=== PATIENT | female | born 1950 | race Caucasian/White ===

== ENCOUNTER → 2018-09-29 | Day surgery (SDC) | payer MEDICARE ==
[~2018-09-29] MED LIST: AMBIEN10 MG PO; CYMBALTA30 MG PO; FENTANYL CITRATE/PF 100MCG/2 ML INJ ONE; GABAPENTIN100 MG PO; GABAPENTIN300 MG PO; MIDAZOLAM HCL 2 MG/2 ML VIAL ONE; NAPROXEN250 MG PO; OR PHACO EYE KIT ONE; PREOP PHACO EYE KIT ONE; PRILOSEC OTC20 MG PO; SYNTHROID125 MCG PO; TIZANIDINE HCL4 MG PO; TRAZODONE HCL50 MG PO; ULTRAM50 MG PO
--- OUTSIDE RECORDS SUMMARY | 2018-09-29 12:20 | XMS REPORT | Continuity of Care Document ---
Author Author [facility] Organization [facility] Address Unknown Phone Unavailable Care Team Providers Care Editor Name Role Phone MD Taye, Bret KEITH Unavailable Insurance Providers Payer name Policy type / Coverage type Policy ID Covered alliance party ID Policy Cross [facility] - MEDICARE SOLUTIONS - MEDICARE C [facility] - MEDICARE SOLUTIONS - MEDICARE C Encounters Encounter Performer Location Date Lab Report Bret Kothari MD [facility] [place] Jul 08, 2014 Allergies, Adverse Reactions, Alerts Type Substance Reaction Status Drug allergy PCN itching Inactive Drug allergy STEROIDS flushing, tongue gets trush Inactive Problems Problem Effective Dates Problem Status FIBROMYALGIA Active HYPOTHYROIDISM Active INSOMNIA Active DEPRESSION Jun 10, 2013 Active ROTATOR CUFF SYNDROME, RIGHT Jun 10, 2013 Active CHEST PAIN, ATYPICAL Oct 04, 2013 Active BODY MASS INDEX 27.0-27.9, ADULT Jul 08, 2014 Active OVERWEIGHT Jul 08, 2014 Active HYPERCHOLESTEROLEMIA, PURE Jul 08, 2014 Active Procedures Date Description Comments Jul 02, 2003 colonoscopy Done Sep 19, 2008 bone density Done Sep 19, 2008 mammogram Done Jun 10, 2013 smoking status current every day smoker Jun 10, 2013 smoking/tobacco cessation, patient education and counseling yes Jul 19, 2013 mammogram Completed Aug 08, 2013 mammogram Completed Jul 08, 2014 smoking status Current every day smoker Jul 08, 2014 smoking/tobacco cessation, patient education and counseling yes Medications Medication Instructions Start Date Status PROMETHAZINE HCL 25 MG TABS Take 1 q 4-6 hrs prn Mar 25, 2013 Active PREDNISONE 20 MG TABS 3tabs po for 2d,then 2 po for 2 d then 1 po for 4 d Jun 10, 2013 Inactive CYMBALTA 60 MG CPEP 1 PO bid Jun 10, 2013 Active LEVOTHYROXINE SODIUM 100 MCG TABS 1 PO Daily Jun 11, 2013 Active OMEPRAZOLE 40 MG CPDR 1 po q d Jun 10, 2013 Inactive TRAZODONE HCL 50 MG TABS 1 po qhs Nov 24, 2013 Active OMEPRAZOLE 40 MG CPDR Take 1 po daily December 28, 2013 Active AMBIEN 10 MG TABS Take one tablet by mouth at bedtime as needed for insomnia Jun 29, 2013 Active SIMVASTATIN 10 MG TABS Take one tablet by mouth once daily Jul 08, 2014 Active NORCO 5-325 MG TABS 1 po qid prn pain Sep 29, 2013 Inactive TRAMADOL HCL 50 MG TABS 1 tablet 4 times a day as needed for pain Jul 08, 2014 Active Immunizations Vaccine Date Status influenza immunization (Flu Vax) has been administered Jul 08, 2014 completed Vital Signs Date Description Test Result Jun 10, 2013 height E&M - 8302-2 HEIGHT 65 in Jun 10, 2013 weight E&M - 3141-9 WEIGHT 150 lb Jun 10, 2013 temperature E&M TEMPERATURE 97.7 deg f Jun 10, 2013 blood pressure, systolic - 8480-6 BP SYSTOLIC 97 mm Hg Jun 10, 2013 blood pressure, diastolic - 8462-4 BP DIASTOLIC 59 mm Hg Jun 10, 2013 pulse rate E&M - 8867-4 PULSE RATE 87 /min Jun 29, 2013 weight E&M - 3141-9 WEIGHT 145 lb Jun 29, 2013 temperature E&M TEMPERATURE 97.7 deg f Jun 29, 2013 blood pressure, systolic - 8480-6 BP SYSTOLIC 117 mm Hg Jun 29, 2013 blood pressure, diastolic - 8462-4 BP DIASTOLIC 58 mm Hg Jun 29, 2013 pulse rate E&M - 8867-4 PULSE RATE 75 /min Sep 29, 2013 weight E&M - 3141-9 WEIGHT 144 lb Sep 29, 2013 temperature E&M TEMPERATURE 99.5 deg f Sep 29, 2013 blood pressure, systolic - 8480-6 BP SYSTOLIC 125 mm Hg Sep 29, 2013 blood pressure, diastolic - 8462-4 BP DIASTOLIC 70 mm Hg Sep 29, 2013 pulse rate E&M - 8867-4 PULSE RATE 98 /min Oct 04, 2013 weight E&M - 3141-9 WEIGHT 142 lb Oct 04, 2013 temperature E&M TEMPERATURE 98.6 deg f Oct 04, 2013 pulse rate E&M - 8867-4 PULSE RATE 84 /min Oct 04, 2013 blood pressure, systolic - 8480-6 BP SYSTOLIC 144 mm Hg Oct 04, 2013 blood pressure, diastolic - 8462-4 BP DIASTOLIC 86 mm Hg Jul 08, 2014 height E&M - 8302-2 HEIGHT 65 in Jul 08, 2014 weight E&M - 3141-9 WEIGHT 165.50 lb Jul 08, 2014 temperature E&M TEMPERATURE 97.8 deg f Jul 08, 2014 respiratory rate E&M - 9279-1 RESP RATE 14 /min Jul 08, 2014 pulse rate E&M - 8867-4 PULSE RATE 72 /min Jul 08, 2014 blood pressure, systolic - 8480-6 BP SYSTOLIC 148 mm Hg Jul 08, 2014 blood pressure, diastolic - 8462-4 BP DIASTOLIC 74 mm Hg Results Date Description Test Name Value Reference Interpretation Status Jul 08, 2014 hemoglobin, blood HGB 13.6 g/dL 12.0-16.0 Jul 08, 2014 hematocrit, blood HCT 41.5 % 36.0-48.0 Jul 08, 2014 platelet count PLATELETS 206 K/CMM /mm3 133-450 Jun 10, 2013 hemoglobin, blood HGB 14.6 g/dL 12.0-16.0 Jun 10, 2013 hematocrit, blood HCT 43.6 % 36.0-48.0 Jun 10, 2013 platelet count PLATELETS 216 K/CMM /mm3 133-450 Jun 10, 2013 erythrocyte sedimentation rate ESR 22 mm/hr 0-20 High Jul 08, 2014 hemoglobin, blood HGB 13.6 g/dL 12.0-16.0 Jul 08, 2014 hematocrit, blood HCT 41.5 % 36.0-48.0 Jul 08, 2014 platelet count PLATELETS 206 K/CMM /mm3 133-450 Jul 08, 2014 cholesterol, serum CHOLESTEROL 242 mg/dl <=199 High Jul 08, 2014 triglyceride, serum, fasting TRIGLYCERIDE 178 mg/dl <=149 High Jul 08, 2014 HDL cholesterol, serum HDL 48 mg/dl >=61 Low Jul 08, 2014 LDL cholesterol, serum LDL 158 mg/dl <=99 High Jul 08, 2014 sodium, serum SODIUM 140 MEQ/L mmol/L 135-145 Jul 08, 2014 potassium, serum POTASSIUM 4.1 MEQ/L mmol/L 3.5-5.1 Jul 08, 2014 creatinine, serum CREATININE 0.8 mg/dL 0.5-1.4 Jul 08, 2014 urea nitrogen, blood BUN 13 mg/dL 7-Jul 08, 2014 urea nitrogen/creatinine ratio, serum BUN/CREAT 16 null 6-25 Jul 08, 2014 albumin, serum ALBUMIN 4.0 g/dL 3.5-5.0 Jul 08, 2014 calcium, serum CALCIUM 8.6 mg/dL 8.5-10.5 Jul 08, 2014 alanine aminotransferase (SGPT), serum SGPT (ALT) 17 U/L 0-65 Jul 08, 2014 aspartate aminotransferase (SGOT), serum SGOT (AST) 14 U/L 0-37 Jul 08, 2014 alkaline phosphatase, serum ALK PHOS 101 U/L 39-136 Jul 08, 2014 thyroid stimulating hormone, serum TSH 0.458 uIU/mL 0.360-3.740 Jun 10, 2013 sodium, serum SODIUM 136 MEQ/L mmol/L 135-145 Jun 10, 2013 potassium, serum POTASSIUM 4.3 MEQ/L mmol/L 3.5-5.1 Jun 10, 2013 creatinine, serum CREATININE 0.9 mg/dL 0.5-1.4 Jun 10, 2013 urea nitrogen, blood BUN 12 mg/dL -Jun 10, 2013 urea nitrogen/creatinine ratio, serum BUN/CREAT 13 null 6-25 Jun 10, 2013 albumin, serum ALBUMIN 3.8 g/dL 3.5-5.0 Jun 10, 2013 calcium, serum CALCIUM 8.8 mg/dL 8.5-10.5 Jun 10, 2013 alanine aminotransferase (SGPT), serum SGPT (ALT) 15 U/L 0-65 Jun 10, 2013 aspartate aminotransferase (SGOT), serum SGOT (AST) 10 U/L 0-37 Jun 10, 2013 alkaline phosphatase, serum ALK PHOS 110 U/L 39-136 Jun 10, 2013 thyroxine, serum, free T4, FREE 1.10 ng/dl 0.76-1.46 Jun 10, 2013 thyroid stimulating hormone, serum TSH 5.810 uIU/mL 0.360-3.740 High Jul 08, 2014 cholesterol, serum CHOLESTEROL 242 mg/dl <=199 High Jul 08, 2014 triglyceride, serum, fasting TRIGLYCERIDE 178 mg/dl <=149 High Jul 08, 2014 HDL cholesterol, serum HDL 48 mg/dl >=61 Low Jul 08, 2014 LDL cholesterol, serum LDL 158 mg/dl <=99 High Jul 08, 2014 sodium, serum SODIUM 140 MEQ/L mmol/L 135-145 Jul 08, 2014 potassium, serum POTASSIUM 4.1 MEQ/L mmol/L 3.5-5.1 Jul 08, 2014 creatinine, serum CREATININE 0.8 mg/dL 0.5-1.4 Jul 08, 2014 urea nitrogen, blood BUN 13 mg/dL -22 Jul 08, 2014 urea nitrogen/creatinine ratio, serum BUN/CREAT 16 null 6-25 Jul 08, 2014 albumin, serum ALBUMIN 4.0 g/dL 3.5-5.0 Jul 08, 2014 calcium, serum CALCIUM 8.6 mg/dL 8.5-10.5 Jul 08, 2014 alanine aminotransferase (SGPT), serum SGPT (ALT) 17 U/L 0-65 Jul 08, 2014 aspartate aminotransferase (SGOT), serum SGOT (AST) 14 U/L 0-37 Jul 08, 2014 alkaline phosphatase, serum ALK PHOS 101 U/L 39-136 Jul 08, 2014 thyroid stimulating hormone, serum TSH 0.458 uIU/mL 0.360-3.740
--- OUTSIDE RECORDS SUMMARY | 2018-09-29 12:20 | XMS REPORT | Continuity of Care Document ---
Author Author [facility] Organization [facility] Address Unknown Phone Unavailable Care Team Providers Care House Sitter Name Role Phone MD Taye, Bret KEITH Unavailable Insurance Providers Payer name Policy type / Coverage type Policy ID Covered republican ID Policy Cross [facility] - [employer] - MEDICARE SOLUTIONS - MEDICARE C [facility] - MEDICARE SOLUTIONS - MEDICARE C Encounters Encounter Performer Location Date Office Visit Bret Kothari MD [facility] [place] Jul 08, 2014 Allergies, Adverse Reactions, Alerts [...]
--- OUTSIDE RECORDS SUMMARY | 2018-09-29 12:20 | XMS REPORT | Summary of Care ---
Author Author [facility] Organization [facility] Address Unknown Phone Unavailable Encounter DEMETRIUS Mays(FIN) [id number] Date(s): 07/21/17 - 07/21/17 [facility] [address] [place] [address] Attending Physician: Bret Kothari MD Vital Signs No data available for this section Problem List Condition Effective Dates Status Health Status Informant Acute sinusitis1 02/23/15 Active Atypical chest pain2 10/04/13 Active Chicken Resolved pox(Confirmed) Depressive disorder3 06/10/13 Active Fibromyositis4 Active Hypothyroidism5 Active Insomnia6 Active Overweight7 07/08/14 Active Rotator cuff 06/10/13 Active syndrome8 1Data migrated from [employer] on 03/15/15. 2Data migrated from [employer] on 01/07/15. 3Data migrated from [employer] on 01/07/15. 4Data migrated from [employer] on 01/07/15. 5Data migrated from [employer] on 01/07/15. 6Data migrated from [employer] on 01/07/15. 7Data migrated from [employer] on 01/07/15. 8Data migrated from [employer] on 01/07/15. Allergies, Adverse Reactions, Alerts Substance Reaction Severity Status morphine rash Moderate Active Medications No data available for this section Results No data available for this section Immunizations Given and Recorded Vaccine Date Status Refusal Reason Hx influenza vaccine-unspecified1 07/08/14 Given 1Result Comment: fluzone (quadrivalent) no preservative (>3 yrs.) [[id number]]. Migrated from [employer] ; Data migrated from [employer] on 09/12/2015. Procedures Procedure Date Related Diagnosis Body Site Bilateral breast implants Esophageal polypectomy Hysterectomy Tonsillectomy Social History Social History Type Response Substance Abuse Use: None. Employment/School Status: Retired. Alcohol Never Smoking Status Current every day smoker; Type: Cigarettes; Exposure to Tobacco Smoke None; Cigarette Smoking Last 365 Days Yes; Reg Smoking Cessation Counseling Yes; Tobacco use per day: 10; Started at age: 29.0; Assessment and Plan No data available for this section
--- OUTSIDE RECORDS SUMMARY | 2018-09-29 12:20 | XMS REPORT | Continuity of Care Document ---
Author Author [facility] Interface Address Unknown Phone Unavailable Problems Problem Status Onset Date Classification Date Reported Comments Source Acute sinusitis<sup>1</sup> Active 02/23/2015 Problem 07/24/2017 Data migrated from [employer] on 03/15/15. [facility] BODY MASS INDEX 27.0-27.9, ADULT Active 07/08/2014 Condition 07/08/2014 [facility] OVERWEIGHT Active 07/08/2014 Condition 07/08/2014 [facility] HYPERCHOLESTEROLEMIA, PURE Active 07/08/2014 Condition 07/08/2014 [facility] Group Overweight<sup>7</sup> Active 07/08/2014 Problem 07/24/2017 Data migrated from [employer] on 01/07/15. [facility] CHEST PAIN, ATYPICAL Active 10/04/2013 Condition 07/08/2014 Medical Group Atypical chest pain<sup>2</sup> Active 10/04/2013 Problem 07/24/2017 Data migrated from [employer] on 01/07/15. [facility] DEPRESSION Active 06/10/2013 Condition 07/08/2014 Medical Group ROTATOR CUFF SYNDROME, RIGHT Active 06/10/2013 Condition 07/08/2014 Medical Group Depressive disorder<sup>3</sup> Active 06/10/2013 Problem 07/24/2017 Data migrated from [employer] on 01/07/15. Medical Group Rotator cuff syndrome<sup>8</sup> Active 06/10/2013 Problem 07/24/2017 Data migrated from [employer] on 01/07/15. [facility] Group FIBROMYALGIA Active Condition 07/08/2014 [facility] HYPOTHYROIDISM Active Condition 07/08/2014 [facility] Group INSOMNIA Active Condition 07/08/2014 Medical Group Chicken pox Resolved Problem 07/24/2017 [facility] Group Fibromyositis<sup>4</sup> Active Problem 07/24/2017 Data migrated from [employer] on 01/07/15. Medical Group Hypothyroidism<sup>5</sup> Active Problem 07/24/2017 Data migrated from [employer] on 01/07/15. [facility] Group Insomnia<sup>6</sup> Active Problem 07/24/2017 Data migrated from [employer] on 01/07/15. [facility] Medications Medication Details Route Status Patient Instructions Ordering Provider Order Date Source Acetaminophen 300 MG / Codeine Phosphate 30 MG Oral Tablet [Tylenol with Codeine #3] 1 tab, PO, Q4H, PRN Pain, X 7 day, # 40 tab, 0 Refill(s), given to patient Active 07/22/2017 [facility] Group tizanidine 4 mg oral tablet 4 mg=1 tab, PO, Q6H, PRN for muscle spasms, # 40 tab, 0 Refill(s), given to patient Active 07/22/2017 [facility] Group Zolpidem tartrate 10 MG Oral Tablet [Ambien] 10 mg=1 tab, PO, Bedtime, PRN for sleep, # 30 tab, 0 Refill(s), called to pharmacy Active 07/08/2017 [facility] Group gabapentin 100 MG Oral Capsule 100 mg=1 cap, PO, TID, # 90 cap, 1 Refill(s), Pharmacy: [facility], Due for appointment with labs Active 07/08/2017 [facility] DULoxetine 60 mg oral delayed release capsule 60 mg=1 cap, PO, BID, # 60 cap, 1 Refill(s), Pharmacy: [facility], Due for appointment with labs Active 07/08/2017 [facility] Promethazine Hydrochloride 25 MG Oral Tablet 25 mg=1 tab, PO, Q4H, PRN Nausea/Vomiting, # 30 tab, 1 Refill(s), Pharmacy: [facility] Active 07/08/2017 [facility] Group Trazodone Hydrochloride 50 MG Oral Tablet 50 mg=1 tab, PO, Bedtime, # 30 tab, 1 Refill(s), Pharmacy: [facility] Active 07/08/2017 [facility] Group naproxen 500 mg oral tablet 500 mg=1 tab, PO, BID, # 60 tab, 1 Refill(s), Pharmacy: [facility] Active 07/08/2017 Medical Group tramadol hydrochloride 50 MG Oral Tablet 50 mg=1 tab, PO, Q6H, PRN Pain, # 60 tab, 0 Refill(s), called to pharmacy Active 07/08/2017 [facility] Group levothyroxine 125 mcg (0.125 mg) oral capsule 125 microgram=1 cap, PO, Daily, # 30 cap, 1 Refill(s), Pharmacy: [facility] Active 07/08/2017 [facility] Group SIMVASTATIN 10 MG TABS Take one tablet by mouth once daily Active 07/08/2014 [facility] Group TRAMADOL HCL 50 MG TABS 1 tablet 4 times a day as needed for pain Active 07/08/2014 [facility] Group OMEPRAZOLE 40 MG CPDR Take 1 po daily Active 12/28/2013 Medical Group TRAZODONE HCL 50 MG TABS 1 po qhs Active 11/24/2013 Medical Group NORCO 5-325 MG TABS 1 po qid prn pain No Longer Active 09/29/2013 [facility] AMBIEN 10 MG TABS 1 PO at bedtime PRN insomnia Active 06/29/2013 [facility] Group AMBIEN 10 MG TABS Take one tablet by mouth at bedtime as needed for insomnia Active 06/29/2013 [facility] Group LEVOTHYROXINE SODIUM 100 MCG TABS 1 PO Daily Active 06/11/2013 Medical Group LEVOTHYROXINE SODIUM 100 MCG TABS 1 PO Daily Active 06/11/2013 Medical Group PREDNISONE 20 MG TABS 3tabs po for 2d,then 2 po for 2 d then 1 po for 4 d No Longer Active 06/10/2013 [facility] Group CYMBALTA 60 MG CPEP 1 PO bid Active 06/10/2013 [facility] Group OMEPRAZOLE 40 MG CPDR 1 po q d No Longer Active 06/10/2013 Medical Group PREDNISONE 20 MG TABS 3tabs po for 2d,then 2 po for 2 d then 1 po for 4 d No Longer Active 06/10/2013 [facility] Group CYMBALTA 60 MG CPEP 1 PO bid Active 06/10/2013 [facility] Group PROMETHAZINE HCL 25 MG TABS Take 1 q 4-6 hrs prn Active 03/25/2013 [facility] Group PROMETHAZINE HCL 25 MG TABS Take 1 q 4-6 hrs prn Active 03/25/2013 [facility] Group TRAZODONE HCL 50 MG TABS 1 po qhs Active 02/16/2013 [facility] Allergies, Adverse Reactions, Alerts Substance Category Reaction Severity Reaction type Status Date Reported Comments Source STEROIDS Drug allergy STEROIDS 06/29/2013 Medical Group PCN Drug allergy PCN 07/08/2014 [facility] Group morphine Assertion rash Moderate Drug allergy Active [facility] Immunizations Immunization Date Given Site Status Last Updated Comments Source influenza immunization (Flu Vax) has been administered 07/08/2014 completed [facility] Hx influenza vaccine-unspecified<sup>1</sup> 07/08/2014 Left Deltoid completed Result Comment: fluzone (quadrivalent) no preservative (>3 yrs.) [[id number]]. Migrated from [facility] ; Data migrated from [employer] on 09/12/2015. [facility] Results Order Name Results Value Reference Range Date Interpretation Comments Source Chemistry CHOLESTEROL 242 mg/dl - 199 07/08/2014 [facility] Chemistry TRIGLYCERIDE 178 mg/dl - 149 07/08/2014 [facility] Chemistry HDL 48 mg/dl >=61 07/08/2014 [facility] Chemistry LDL 158 mg/dl - 99 07/08/2014 [facility] Chemistry SODIUM 140 MEQ/L mmol/L 135 - 145 07/08/2014 [facility] Chemistry POTASSIUM 4.1 MEQ/L mmol/L 3.5 - 5.1 07/08/2014 [facility] Chemistry CREATININE 0.8 mg/dL 0.5 - 1.4 07/08/2014 [facility] Chemistry BUN 13 mg/dL 7 - 22 07/08/2014 [facility] Chemistry BUN/CREAT 16 6 - 25 07/08/2014 [facility] Chemistry ALBUMIN 4.0 g/dL 3.5 - 5.0 07/08/2014 [facility] Chemistry CALCIUM 8.6 mg/dL 8.5 - 10.5 07/08/2014 [facility] Chemistry SGPT (ALT) 17 U/L 0 - 65 07/08/2014 [facility] Chemistry SGOT (AST) 14 U/L 0 - 37 07/08/2014 [facility] Chemistry ALK PHOS 101 U/L 39 - 136 07/08/2014 [facility] Chemistry TSH 0.458 uIU/mL 0.360 - 3.740 07/08/2014 [facility] Chemistry CHOLESTEROL 242 mg/dl - 199 07/08/2014 [facility] Chemistry TRIGLYCERIDE 178 mg/dl - 149 07/08/2014 [facility] Chemistry HDL 48 mg/dl >=61 07/08/2014 [facility] Chemistry LDL 158 mg/dl - 99 07/08/2014 [facility] Chemistry SODIUM 140 MEQ/L mmol/L 135 - 145 07/08/2014 [facility] Chemistry POTASSIUM 4.1 MEQ/L mmol/L 3.5 - 5.1 07/08/2014 [facility] Chemistry CREATININE 0.8 mg/dL 0.5 - 1.4 07/08/2014 [facility] Chemistry BUN 13 mg/dL 7 - 22 07/08/2014 [facility] Chemistry BUN/CREAT 16 6 - 25 07/08/2014 [facility] Chemistry ALBUMIN 4.0 g/dL 3.5 - 5.0 07/08/2014 [facility] Chemistry CALCIUM 8.6 mg/dL 8.5 - 10.5 07/08/2014 [facility] Chemistry SGPT (ALT) 17 U/L 0 - 65 07/08/2014 [facility] Chemistry SGOT (AST) 14 U/L 0 - 37 07/08/2014 [facility] Chemistry ALK PHOS 101 U/L 39 - 136 07/08/2014 [facility] Chemistry TSH 0.458 uIU/mL 0.360 - 3.740 07/08/2014 [facility] Hematology HGB 13.6 g/dL 12.0 - 16.0 07/08/2014 [facility] Hematology HCT 41.5 % 36.0 - 48.0 07/08/2014 [facility] Hematology PLATELETS 206 K/CMM /mm3 133 - 450 07/08/2014 [facility] Hematology HGB 13.6 g/dL 12.0 - 16.0 07/08/2014 [facility] Hematology HCT 41.5 % 36.0 - 48.0 07/08/2014 [facility] Hematology PLATELETS 206 K/CMM /mm3 133 - 450 07/08/2014 [facility] Chemistry SODIUM 136 MEQ/L mmol/L 135 - 145 06/10/2013 [facility] Chemistry POTASSIUM 4.3 MEQ/L mmol/L 3.5 - 5.1 06/10/2013 [facility] Chemistry CREATININE 0.9 mg/dL 0.5 - 1.4 06/10/2013 [facility] Chemistry BUN 12 mg/dL 7 - 22 06/10/2013 [facility] Chemistry BUN/CREAT 13 6 - 25 06/10/2013 [facility] Chemistry ALBUMIN 3.8 g/dL 3.5 - 5.0 06/10/2013 [facility] Chemistry CALCIUM 8.8 mg/dL 8.5 - 10.5 06/10/2013 [facility] Chemistry SGPT (ALT) 15 U/L 0 - 65 06/10/2013 [facility] Chemistry SGOT (AST) 10 U/L 0 - 37 06/10/2013 [facility] Chemistry ALK PHOS 110 U/L 39 - 136 06/10/2013 [facility] Chemistry T4, FREE 1.10 ng/dl 0.76 - 1.46 06/10/2013 [facility] Chemistry TSH 5.810 uIU/mL 0.360 - 3.740 06/10/2013 [facility] Chemistry SODIUM 136 MEQ/L mmol/L 135 - 145 06/10/2013 [facility] Chemistry POTASSIUM 4.3 MEQ/L mmol/L 3.5 - 5.1 06/10/2013 [facility] Chemistry CREATININE 0.9 mg/dL 0.5 - 1.4 06/10/2013 [facility] Chemistry BUN 12 mg/dL 7 - 22 06/10/2013 [facility] Chemistry BUN/CREAT 13 6 - 25 06/10/2013 [facility] Chemistry ALBUMIN 3.8 g/dL 3.5 - 5.0 06/10/2013 [facility] Chemistry CALCIUM 8.8 mg/dL 8.5 - 10.5 06/10/2013 [facility] Chemistry SGPT (ALT) 15 U/L 0 - 65 06/10/2013 [facility] Chemistry SGOT (AST) 10 U/L 0 - 37 06/10/2013 [facility] Chemistry ALK PHOS 110 U/L 39 - 136 06/10/2013 [facility] Chemistry T4, FREE 1.10 ng/dl 0.76 - 1.46 06/10/2013 [facility] Chemistry TSH 5.810 uIU/mL 0.360 - 3.740 06/10/2013 [facility] Hematology HGB 14.6 g/dL 12.0 - 16.0 06/10/2013 [facility] Hematology HCT 43.6 % 36.0 - 48.0 06/10/2013 Medical [facility] Hematology PLATELETS 216 K/CMM /mm3 133 - 450 06/10/2013 Medical [facility] Hematology HGB 14.6 g/dL 12.0 - 16.0 06/10/2013 [facility] Hematology HCT 43.6 % 36.0 - 48.0 06/10/2013 [facility] Hematology PLATELETS 216 K/CMM /mm3 133 - 450 06/10/2013 [facility] Hematology ESR 22 mm/hr 0 - 20 06/10/2013 [facility] Vital Signs Vital Sign Value Date Comments Source Height 165.1 cm 07/21/2017 [facility] Group Temperature Oral (F) 98.1 F 07/21/2017 [facility] Group BMI Calculated 28.68 07/21/2017 [facility] Weight 78.182 07/21/2017 [facility] Heart Rate 86 07/21/2017 [facility] Group Respitory Rate 16 07/21/2017 [facility] Group Systolic (mm Hg) 153 07/21/2017 [facility] Group Diastolic (mm Hg) 102 07/21/2017 [facility] Group Height 65 07/08/2014 Medical Group Weight 165.50 07/08/2014 [facility] Temperature Oral (F) 97.8 F 07/08/2014 [facility] Group Respitory Rate 14 07/08/2014 [facility] Group Heart Rate 72 07/08/2014 [facility] Group Systolic (mm Hg) 148 07/08/2014 [facility] Group Diastolic (mm Hg) 74 07/08/2014 [facility] Group Weight 142 10/04/2013 [facility] Group Temperature Oral (F) 98.6 F 10/04/2013 [facility] Group Heart Rate 84 10/04/2013 [facility] Group Systolic (mm Hg) 144 10/04/2013 [facility] Group Diastolic (mm Hg) 86 10/04/2013 [facility] Group Weight 144 09/29/2013 [facility] Temperature Oral (F) 99.5 F 09/29/2013 [facility] Group Systolic (mm Hg) 125 09/29/2013 [facility] Group Diastolic (mm Hg) 70 09/29/2013 [facility] Group Heart Rate 98 09/29/2013 Medical Group Weight 145 06/29/2013 [facility] Temperature Oral (F) 97.7 F 06/29/2013 [facility] Systolic (mm Hg) 117 06/29/2013 [facility] Group Diastolic (mm Hg) 58 06/29/2013 [facility] Heart Rate 75 06/29/2013 Medical Group Height 65 06/10/2013 [facility] Group Weight 150 06/10/2013 [facility] Temperature Oral (F) 97.7 F 06/10/2013 [facility] Group Systolic (mm Hg) 97 06/10/2013 [facility] Group Diastolic (mm Hg) 59 06/10/2013 Medical Group Heart Rate 87 06/10/2013 Medical Group Encounters Location Location Details Encounter Type Encounter Number Reason For Visit Attending Provider ADM Date DC Date Status Source [facility] Office Visit [id number] Bret Kothari MD 10/04/2013 10/04/2013 Medical [facility] Lab Report [id number] Bret Kothari MD 07/08/2014 07/08/2014 Medical Group [facility] Office Visit [id number] Bret Kothari MD 07/08/2014 07/08/2014 Medical Group Outpatient [id number] BRET KOTHARI 02/23/2015 Active [facility] Outpatient [id number] BRET KOTHARI 03/27/2015 Active [facility] Outpatient [id number] BRET KOTHARI 10/17/2015 Active [facility] Outpatient [id number] BRET KOTHARI 10/19/2015 Active [facility] Outpatient [id number] BRET KOTHARI 03/13/2016 Active [facility] Outpatient [id number] DERRICK EK 09/03/2016 Active [facility] Outpatient [id number] DERRICK EK 10/04/2016 Active [facility] Outpatient [id number] BRET KOTHARI 12/18/2016 Active [facility] Phone Message [id number] 07/08/2017 07/10/2017 Medical Group Outpatient [id number] BRET KOTHARI 07/21/2017 Active [facility] Outpatient [id number] BRET KOTHARI 07/21/2017 Active [facility] [place] Ambulatory Pre-Reg [id number] Bret Kothari 07/21/2017 07/21/2017 Medical Group [facility] Outpatient [id number] Bret Kothari 07/21/2017 07/22/2017 Medical Group Outpatient [id number] BRET KOTHARI 10/09/2017 Active [facility] Outpatient [id number] BRET KOTHARI 11/12/2017 Active [facility] Outpatient [id number] BRET KOTHARI 07/09/2018 Active [facility] Outpatient [id number] BRET KOTHARI 09/11/2018 Active [facility] Procedures Procedure Code Date Perfomer Comments Source smoking/tobacco cessation, patient education and counseling 14 07/08/2014 yes [facility] mammogram 73343 08/08/2013 Completed [facility] mammogram 60857 07/19/2013 Completed [facility] smoking/tobacco cessation, patient education and counseling 14 06/10/2013 yes [facility] bone density 4002.65 09/19/2008 Done [facility] mammogram 79608 09/19/2008 Done [facility] colonoscopy 90150 07/02/2003 Done [facility] Bilateral breast implants [id number] [facility] Esophageal polypectomy [id number] [facility] Hysterectomy [id number] [facility] Tonsillectomy [id number] [facility]
--- OUTSIDE RECORDS SUMMARY | 2018-09-29 12:20 | XMS REPORT | Continuity of Care Document ---
Author Author [facility] Organization [facility] Address Unknown Phone Unavailable Care Team Providers Care Spot Man Name Role Phone MD Taye, Bret KEITH Unavailable Insurance Providers Payer name Policy type / Coverage type Policy ID Covered republican ID Policy Cross [facility] - MEDICARE SOLUTIONS - MEDICARE C [facility]LY [facility] - MEDICARE SOLUTIONS - MEDICARE C Encounters Encounter Performer Location Date Office Visit Bret Kothari MD [facility] [place] Oct 04, 2013 Allergies, Adverse Reactions, Alerts Type Substance Reaction Status Drug allergy PCN itching Active Drug allergy STEROIDS flushing, tongue gets trush Active Problems Problem Effective Dates Problem Status FIBROMYALGIA Active HYPOTHYROIDISM Active INSOMNIA Active DEPRESSION Jun 10, 2013 Active ROTATOR CUFF SYNDROME, RIGHT Jun 10, 2013 Active CHEST PAIN, ATYPICAL Oct 04, 2013 Active Procedures Date Description Comments Jul 02, 2003 colonoscopy Done Sep 19, 2008 bone density Done Sep 19, 2008 mammogram Done Jun 10, 2013 smoking status current every day smoker Jun 10, 2013 smoking/tobacco cessation, patient education and counseling yes Jul 19, 2013 mammogram Completed Aug 08, 2013 mammogram Completed Medications Medication Instructions Start Date Status TRAZODONE HCL 50 MG TABS 1 po qhs Feb 16, 2013 Active PROMETHAZINE HCL 25 MG TABS Take 1 q 4-6 hrs prn Mar 25, 2013 Active PREDNISONE 20 MG TABS 3tabs po for 2d,then 2 po for 2 d then 1 po for 4 d Jun 10, 2013 Inactive CYMBALTA 60 MG CPEP 1 PO bid Jun 10, 2013 Active LEVOTHYROXINE SODIUM 100 MCG TABS 1 PO Daily Jun 11, 2013 Active AMBIEN 10 MG TABS 1 PO at bedtime PRN insomnia Jun 29, 2013 Active NORCO 5-325 MG TABS 1 po qid prn pain Sep 29, 2013 Active OMEPRAZOLE 40 MG CPDR 1 po q d Jun 10, 2013 Inactive Vital Signs Date Description Test Result Jun [...] - 8462-4 BP DIASTOLIC 86 mm Hg Results Date Description Test Name Value Reference Interpretation Status Jun 10, 2013 hemoglobin, blood HGB 14.6 g/dL 12.0-16.0 Jun 10, 2013 hematocrit, blood HCT 43.6 % 36.0-48.0 Jun 10, 2013 platelet count PLATELETS 216 K/CMM /mm3 133-450 Jun 10, 2013 erythrocyte sedimentation rate ESR 22 mm/hr 0-20 High Jun 10, 2013 sodium, serum SODIUM 136 MEQ/L mmol/L 135-145 Jun 10, 2013 potassium, serum POTASSIUM 4.3 MEQ/L mmol/L 3.5-5.1 Jun 10, 2013 creatinine, serum CREATININE 0.9 mg/dL 0.5-1.4 Jun 10, 2013 urea nitrogen, blood BUN 12 mg/dL 7-22 Jun 10, 2013 urea nitrogen/creatinine ratio, serum BUN/CREAT [...]
--- OUTSIDE RECORDS SUMMARY | 2018-09-29 12:20 | XMS REPORT | Summary of Care ---
Author Author [facility] Organization [facility] Address Unknown Phone Unavailable Encounter [facility] Tabatha(FIN) [id number] Date(s): 07/21/17 - [facility]21/[facility] [address] [place] [phone] Discharge Disposition: Home or Self Care Attending Physician: Bret Kothari MD Vital Signs Most recent to 1 oldest [Reference Range]: Height 165.1 cm (07/21/17 3:05 PM) Temperature Oral 98.1 DegF [96.4-99.1 DegF] (07/21/17 3:05 PM) Blood Pressure 153/102 mmHg [90-140/60-90 mmHg] *HI* (07/21/17 3:05 PM) Respiratory Rate 16 BRMIN [14-20 BRMIN] (07/21/17 3:05 PM) Peripheral Pulse 86 bpm Rate [60-100 bpm] (07/21/17 3:05 PM) Weight 78.182 kg (07/21/17 3:05 PM) Body Mass Index 28.68 m2 (07/21/17 3:05 PM) Problem List Condition Effective Dates Status Health [...] [employer] on 01/07/15. 6Data migrated from [employer] on 01/07/15. 7Data migrated from [employer] on 01/07/15. 8Data migrated from [employer] on 01/07/15. Allergies, Adverse Reactions, Alerts Substance Reaction Severity Status morphine rash Moderate Active Medications tizanidine 4 mg oral tablet 4 mg=1 tab, PO, Q6H, PRN for muscle spasms, # 40 tab, 0 Refill(s), given to [facility] Start Date: 07/21/17 Status: Ordered Tylenol with Codeine #3 oral tablet 1 tab, PO, Q4H, PRN Pain, X 7 day, # 40 tab, 0 Refill(s), given to patient Start Date: 07/21/17 Stop Date: 07/28/17 Status: Ordered Results No data available for this section Immunizations Given and Recorded Vaccine Date Status Refusal Reason Hx influenza vaccine-unspecified1 07/08/14 Given 1Result Comment: fluzone (quadrivalent) no preservative (>3 yrs.) [[id number]]. Migrated from [facility] ; Data migrated from [employer] on 09/12/2015. Procedures Procedure Date Related Diagnosis [...]
--- OUTSIDE RECORDS SUMMARY | 2018-09-29 12:20 | XMS REPORT | Summary of Care ---
Author Author [facility] Organization [facility] Address Unknown Phone Unavailable Encounter DEMETRIUS Mays(FIN) [id number] Date(s): 07/08/17 - 07/09/17 [facility] [address] [place] D [place] [phone] Vital Signs No data available for this [...] Severity Status morphine rash Moderate Active Medications Ambien 10 mg oral tablet 10 mg=1 tab, PO, Bedtime, PRN for sleep, # 30 tab, 0 Refill(s), called to [employer] Start Date: 07/08/17 Stop Date: 07/08/18 Status: Ordered DULoxetine 60 mg oral delayed release capsule 60 mg=1 cap, PO, BID, # 60 cap, 1 Refill(s), Pharmacy: [facility] [place], Due for appointment with labs Start Date: 07/08/17 Status: Ordered gabapentin 100 mg oral capsule 100 mg=1 cap, PO, TID, # 90 cap, 1 Refill(s), Pharmacy: [facility], Due for appointment with labs Start Date: 07/08/17 Status: Ordered levothyroxine 125 mcg (0.125 mg) oral capsule 125 microgram=1 cap, PO, Daily, # 30 cap, 1 Refill(s), Pharmacy: [facility] Start Date: 07/08/17 Status: Ordered naproxen 500 mg oral tablet 500 mg=1 tab, PO, BID, # 60 tab, 1 Refill(s), Pharmacy: [facility] Start Date: 07/08/17 Status: Ordered promethazine 25 mg oral tablet 25 mg=1 tab, PO, Q4H, PRN Nausea/Vomiting, # 30 tab, 1 Refill(s), Pharmacy: [facility] Start Date: 07/08/17 Stop Date: 07/08/18 Status: Ordered tramadol 50 mg oral tablet 50 mg=1 tab, PO, Q6H, PRN Pain, # 60 tab, 0 Refill(s), called to pharmacy Start Date: 07/08/17 Stop Date: 07/08/18 Status: Ordered trazodone 50 mg oral tablet 50 mg=1 tab, PO, Bedtime, # 30 tab, 1 Refill(s), Pharmacy: [facility] Start Date: 07/08/17 Status: Ordered Results No data available for this section Immunizations Given and Recorded Vaccine Date Status Refusal Reason Hx influenza vaccine-unspecified1 07/08/14 Given 1Result Comment: fluzone (quadrivalent) no preservative (>3 yrs.) [[id number]]. Migrated from [facility] ; Data migrated from [employer] on 09/12/2015. Procedures Procedure Date Related Diagnosis Body Site Bilateral breast implants Esophageal polypectomy Hysterectomy Tonsillectomy Social History Social History Type Response Substance Abuse Use: None. Employment/School Status: Retired. Alcohol Never Smoking Status Current every day smoker; Exposure to Tobacco Smoke None; Cigarette Smoking Last 365 Days No; Reg Smoking Cessation Counseling No Assessment and Plan No data available for this section
[2018-09-29 15:35] VITALS: BP 163/64
== END | disposition home or self-care (01) ==
LOC: OR 12:17
PROVIDERS: ATTEND Ophthalmology
DX: H25.11 Age-related nuclear cataract, right eye (principal); G89.29 Other chronic pain; J45.909 Unspecified asthma, uncomplicated; E03.9 Hypothyroidism, unspecified; K21.9 Gastro-esophageal reflux disease without esophagitis; M79.7 Fibromyalgia; F32.9 Major depressive disorder, single episode, unspecified; F17.210 Nicotine dependence, cigarettes, uncomplicated
CPT/HCPCS: 66984; J2250; V2632

== ENCOUNTER → 2018-10-13 | Day surgery (SDC) | payer MEDICARE ==
--- OUTSIDE RECORDS SUMMARY | 2018-10-13 10:03 | XMS REPORT | Continuity of Care Document ---
Author Author [facility] Interface Address Unknown Phone Unavailable Problems Problem Status Onset Date Classification Date Reported Comments Source Acute sinusitis<sup>1</sup> Active 02/23/2015 Problem 07/24/2017 Data migrated from [facility] on 03/15/15. [facility] BODY MASS INDEX 27.0-27.9, ADULT Active 07/08/2014 Condition 07/08/2014 [facility] OVERWEIGHT Active 07/08/2014 Condition 07/08/2014 [facility] HYPERCHOLESTEROLEMIA, PURE Active 07/08/2014 Condition 07/08/2014 [facility] Overweight<sup>7</sup> Active 07/08/2014 Problem 07/24/2017 Data migrated from [facility] on 01/07/15. [facility] CHEST PAIN, ATYPICAL Active 10/04/2013 Condition 07/08/2014 [facility] Atypical chest pain<sup>2</sup> Active 10/04/2013 Problem 07/24/2017 Data migrated from [facility] on 01/07/15. [facility] DEPRESSION Active 06/10/2013 Condition 07/08/2014 [facility] ROTATOR CUFF SYNDROME, RIGHT Active 06/10/2013 Condition 07/08/2014 [facility] Depressive disorder<sup>3</sup> Active 06/10/2013 Problem 07/24/2017 Data migrated from [facility] on 01/07/15. [facility] Rotator cuff syndrome<sup>8</sup> Active 06/10/2013 Problem 07/24/2017 Data migrated from [facility] on 01/07/15. [facility] FIBROMYALGIA Active Condition 07/08/2014 [facility] HYPOTHYROIDISM Active Condition 07/08/2014 [facility] INSOMNIA Active Condition 07/08/2014 [facility] Chicken pox Resolved Problem 07/24/2017 [facility] Fibromyositis<sup>4</sup> Active Problem 07/24/2017 Data migrated from [facility] on 01/07/15. [facility] Hypothyroidism<sup>5</sup> Active Problem 07/24/2017 Data migrated from [facility] on 01/07/15. [facility] Insomnia<sup>6</sup> Active Problem 07/24/2017 Data migrated from [facility] on 01/07/15. [facility] Medications Medication Details [...] TID, # 90 cap, 1 Refill(s), Pharmacy: [facility], Due for appointment with labs Active 07/08/2017 [facility] DULoxetine 60 mg oral delayed release capsule 60 mg=1 cap, PO, BID, # 60 cap, 1 Refill(s), Pharmacy: [facility], Due for appointment with labs Active 07/08/2017 [facility] Promethazine Hydrochloride 25 MG Oral Tablet 25 mg=1 tab, PO, Q4H, PRN Nausea/Vomiting, # 30 tab, 1 Refill(s), Pharmacy: [facility] Active 07/08/2017 [facility] Trazodone Hydrochloride 50 MG Oral Tablet 50 mg=1 tab, PO, Bedtime, # 30 tab, 1 Refill(s), Pharmacy: [facility] Active 07/08/2017 [facility] naproxen 500 mg oral tablet 500 mg=1 tab, PO, BID, # 60 tab, 1 Refill(s), Pharmacy: [facility] Active 07/08/2017 [facility] tramadol hydrochloride 50 MG Oral Tablet 50 mg=1 tab, PO, Q6H, PRN Pain, # 60 tab, 0 Refill(s), called to pharmacy Active 07/08/2017 [facility] levothyroxine 125 mcg (0.125 mg) oral capsule 125 microgram=1 cap, PO, Daily, # 30 cap, 1 Refill(s), Pharmacy: [facility] Active 07/08/2017 [facility] SIMVASTATIN 10 MG [...] Comment: fluzone (quadrivalent) no preservative (>3 yrs.) [[id number]]. Migrated from [facility] ; Data migrated from [employer] on 09/12/2015. [facility] Results Order Name Results Value Reference Range Date Interpretation Comments Source Chemistry CHOLESTEROL 242 mg/dl - 199 07/08/2014 [facility] Chemistry TRIGLYCERIDE 178 mg/dl - 149 07/08/2014 Medical [facility] Chemistry HDL 48 mg/dl >=61 07/08/2014 Medical [facility] Chemistry LDL 158 mg/dl - 99 07/08/2014 [facility] Chemistry SODIUM 140 MEQ/L mmol/L 135 - 145 07/08/2014 [facility] Chemistry POTASSIUM 4.1 MEQ/L mmol/L 3.5 - 5.1 07/08/2014 [facility] Chemistry CREATININE 0.8 mg/dL 0.5 - 1.4 07/08/2014 [facility] Chemistry BUN 13 mg/dL 7 - 22 07/08/2014 Medical [facility] Chemistry BUN/CREAT 16 6 - 25 07/08/2014 Medical [facility] Chemistry ALBUMIN 4.0 g/dL 3.5 - 5.0 07/08/2014 [facility] Chemistry CALCIUM 8.6 mg/dL 8.5 - 10.5 07/08/2014 [facility] Chemistry SGPT (ALT) 17 U/L 0 - 65 07/08/2014 Medical [facility] Chemistry SGOT (AST) 14 U/L 0 - 37 07/08/2014 [facility] Chemistry ALK PHOS 101 U/L 39 - 136 07/08/2014 [facility] Chemistry TSH 0.458 uIU/mL 0.360 - 3.740 07/08/2014 Medical [facility] Chemistry CHOLESTEROL 242 mg/dl - 199 07/08/2014 [facility] Chemistry TRIGLYCERIDE 178 mg/dl - 149 07/08/2014 Medical [facility] Chemistry HDL 48 mg/dl >=61 07/08/2014 [...] 41.5 % 36.0 - 48.0 07/08/2014 Medical [facility] Hematology PLATELETS 206 K/CMM /mm3 133 - 450 07/08/2014 Medical [facility] Hematology HGB 13.6 g/dL 12.0 - 16.0 07/08/2014 Medical [facility] Hematology HCT 41.5 % 36.0 - 48.0 07/08/2014 Medical [facility] Hematology PLATELETS 206 K/CMM /mm3 133 [...] FREE 1.10 ng/dl 0.76 - 1.46 06/10/2013 [facility] Chemistry TSH 5.810 uIU/mL 0.360 [...] 15 U/L 0 - 65 06/10/2013 Medical [facility] Chemistry SGOT (AST) 10 U/L 0 - 37 06/10/2013 [facility] Chemistry ALK PHOS 110 U/L 39 - 136 06/10/2013 [facility] Chemistry T4, FREE 1.10 ng/dl 0.76 - 1.46 06/10/2013 [facility] Chemistry TSH 5.810 uIU/mL 0.360 - 3.740 06/10/2013 [facility] Hematology HGB 14.6 g/dL 12.0 - 16.0 06/10/2013 [facility] Hematology HCT 43.6 % 36.0 - 48.0 06/10/2013 Medical [facility] Hematology PLATELETS 216 K/CMM /mm3 133 - 450 06/10/2013 Medical [facility] Hematology HGB 14.6 g/dL 12.0 - [...] Provider ADM Date DC Date Status Source [facility] [place] Office Visit [id number] Bret Kothari MD 10/04/2013 10/04/2013 Medical [facility] [place] Office Visit [id number] Bret Kothari MD 07/08/2014 07/08/2014 Medical [facility] [place] Lab Report [id number] Bret Kothari MD 07/08/2014 07/08/2014 [facility] Outpatient [id number] BRET KOTHARI 02/23/2015 Active [facility] [id number] BRET KOTHARI 03/27/2015 Active [facility] Outpatient [id number] BRET KOTHARI 10/17/2015 Active [facility] Outpatient [id number] BRET KOTHARI 10/19/2015 Active [facility] Outpatient [id number] BRET KOTHARI 03/13/2016 Active [facility] Outpatient [id number] DERRICK EK 09/03/2016 Active [facility] Outpatient [id number] DERRICK AZEK 10/04/2016 Active [facility] Outpatient [id number] BRET KOTHARI 12/18/2016 Active [facility] Phone Message [id number] 07/08/2017 07/10/2017 [facility] Outpatient [id number] BRET KOTHARI 07/21/2017 Active [facility] Outpatient [id number] BRET KOTHARI 07/21/2017 Active [facility] [place] Ambulatory Pre-Reg [id number] Bret Kothari 07/21/2017 07/21/2017 Medical Group [facility] Outpatient [id number] Bret Kothari 07/21/2017 07/22/2017 [facility] Outpatient [id number] BRET KOTHARI 10/09/2017 Active [facility] Outpatient [id number] BRET KOTHARI 11/12/2017 Active [facility] Outpatient [id number] BRET KOTHARI 07/09/2018 Active [facility] Outpatient [id number] BRET KOTHARI 09/11/2018 Active [facility] Outpatient [id number] BRET KOTHARI 10/01/2018 Active [facility] Procedures Procedure Code Date Perfomer Comments Source smoking/tobacco cessation, patient education and counseling 14 07/08/2014 yes [facility] mammogram 45599 08/08/2013 Completed [facility] mammogram 06317 07/19/2013 Completed [facility] smoking/tobacco cessation, patient education and counseling 14 06/10/2013 yes [facility] bone density 4002.65 09/19/2008 Done [facility] mammogram 94349 09/19/2008 Done [facility] colonoscopy 96025 07/02/2003 Done [facility] Bilateral breast implants 40998068 [facility] Esophageal polypectomy 642499967 [facility] Hysterectomy [id number] [facility] Tonsillectomy [id number] [facility]
[2018-10-13 12:41] VITALS: BP 178/79
== END | disposition home or self-care (01) ==
LOC: OR 10:00
PROVIDERS: ATTEND Ophthalmology
DX: H25.12 Age-related nuclear cataract, left eye (principal); J45.909 Unspecified asthma, uncomplicated; E03.9 Hypothyroidism, unspecified; K21.9 Gastro-esophageal reflux disease without esophagitis; M79.7 Fibromyalgia; F32.9 Major depressive disorder, single episode, unspecified; F17.200 Nicotine dependence, unspecified, uncomplicated
CPT/HCPCS: 66984; J2250; V2632